=== PATIENT | female | born 1970 | race Caucasian/White ===

== ENCOUNTER 2024-03-07 17:27 | Emergency (ER) | payer OTHER ==
[~2024-03-07] VITALS: Ht 162.6 cm; Wt 87.5 kg
--- NOTE | 2024-03-07 17:40 | NUR ---
RECEIVED PT 54 YRS FEMALE WALKING IN FROM HOME C/O BACK PAIN CHRONIC GOTING WORS TODAY DINESES HX TRAUMA OR WEEKNESS
[2024-03-07 17:42] VITALS: TEMP 98.2
--- NOTE | 2024-03-07 18:15 | NUR ---
SEEN BY DR. BARLOW
--- NOTE | 2024-03-07 19:15 | NUR ---
BLOOD DROW BY HOSPITAL SECURITY OFFICER
[2024-03-07 19:31] LABS: BASOPHILS % (AUTO) 0.4 % (0.0-2.0); EOSINOPHILS # (AUTO) 0.1 K/uL (0.0-0.7); HEMATOCRIT 39 % (33-45); HEMOGLOBIN 12.8 g/dL (11.5-14.8); LYMPHOCYTES # (AUTO) 2.1 K/uL (0.8-4.8); LYMPHOCYTES % (AUTO) 42.9 % (20.0-44.0); MEAN CORPUSCULAR HEMOGLOBIN 29 PG (26.0-33.0); MEAN CORPUSCULAR HGB CONC 33 g/dl (31.0-36.0); MEAN CORPUSCULAR VOLUME 88 fL (82-100); MONOCYTES # (AUTO) 0.4 K/uL (0.1-1.30); NEUTROPHILS # (AUTO) 2.2 K/uL (1.8-8.9); NEUTROPHILS % (AUTO) 45.7 % (43.0-81.0); PLATELET COUNT (AUTO) 195 K/uL (150-450); RED BLOOD CELL COUNT(AUTO) 4.42 MIL/uL (4.0-5.2); RED CELL DISTRIBUTION WIDTH 13.6 % (11.5-15.0); WHITE BLOOD COUNT (AUTO) 4.8 K/uL (4.3-11.0)
--- NOTE | 2024-03-07 19:39 | NUR ---
HAND OFF DARWIN RN
[2024-03-07 19:45] LABS: INR 0.97 (0.91-1.10); PARTIAL THROMBOPLASTIN TIME 26.1 SEC (24.3-34.3); PROTHROMBIN TIME 10.3 SECS (9.2-11.1)
[2024-03-07 19:49] LABS: CALCIUM, SERUM 8.8 mg/dL (8.5-10.1); CREATININE 0.8 mg/dL (0.6-1.3); POTASSIUM 3.8 mmol/L (3.5-5.1)
[2024-03-07] MEDS ORDERED: KETO10TA2 PO (21:02)
[2024-03-07] MEDS ORDERED: BACL5TAB PO (21:02)
[2024-03-07] MEDS ORDERED: KETOROLAC TROMETHAMINE INJ 30 MG/ML VIAL ONE (21:08)
[2024-03-07] MEDS ORDERED: BACLOFEN (10 MG) 10 MG TABLET ONE (21:08)
[2024-03-07 21:13] VITALS: BP 122/96; O2SAT 98
[2024-03-07] MEDS: BACLOFEN (10 MG) 10 MG TABLET PO ONE (21:13)
[2024-03-07] MEDS: KETOROLAC TROMETHAMINE INJ 30 MG/ML VIAL IM ONE (21:13)
--- NOTE | 2024-03-07 21:13 | NUR ---
Patient discharged to home in stable condition. Written and verbal after care instructions given. Patient verbalizes understanding of instruction.
== END 2024-03-07 21:14 | disposition home or self-care (01) ==
LOC: ER 17:54
DX: G44.86 Cervicogenic headache (principal); M50.30 Other cervical disc degeneration, unspecified cervical region; I10 Essential (primary) hypertension; Z79.899 Other long term (current) drug therapy
CPT/HCPCS: 99285; 72125; 80061; 96372; 85025; 80048; 36415; 85730; J1885